=== PATIENT | female | born 1995 | race Caucasian/White ===

== ENCOUNTER 2020-08-28 21:53 | Emergency (ER) | payer OTHER ==
[2020-08-28] MEDS ORDERED: ACETAMINOPHEN 325 MG TABLET PO ONE (23:03)
--- NOTE | 2020-08-28 23:04 | ER Document Report ---
ED Medical Screen (RME) - General Chief Complaint: Chest Pain Stated Complaint: CHEST PAIN,HEADACHE,NAUSEA,DIARRHEA Time Seen by Provider: 08/28/20 22:58 Mode of Arrival: Ambulatory Information source: Patient Notes: HPI; 24-year-old female presents to the emergency room complaining of chest pain with nausea and a fever of 100.9 that started earlier today. Describes the pain as sharp and burning states it is constant. Denies any trauma or injury to her chest. Denies any recent travel. No history of PE or DVTs. No recent travel. Denies any no known COVID-19 exposure. No ill contacts. PE: Alert and oriented x3. Lungs: Scattered rhonchi no wheezes no rales. Heart: Regular rate rhythm without murmurs, rubs, gallops. I have greeted and performed a rapid initial assessment of this patient. A comprehensive ED assessment and evaluation of the patient, analysis of test results and completion of the medical decision making process will be conducted by additional ED providers. I have specifically instructed the patient or family members with the patient to immediately return to any nursing staff should anything change in the patient's condition or with their chief complaint. TRAVEL OUTSIDE OF THE [place] IN LAST 30 DAYS: No Physical Exam - Vital signs Vitals: Temp Pulse Resp BP Pulse Ox 99.3 F 90 17 137/81 H 99 08/28/20 22:12 08/28/20 22:12 08/28/20 22:12 08/28/20 22:12 08/28/20 22:12 Course - Vital Signs Vital signs: Temp Pulse Resp BP Pulse Ox 99.3 F 90 17 137/81 H 99 08/28/20 22:12 08/28/20 22:12 08/28/20 22:12 08/28/20 22:12 08/28/20 22:12
--- NOTE | 2020-08-29 00:05 | RADIOLOGY REPORT (SQ) ---
EXAM DESCRIPTION: XR CHEST 1 VIEW COMPLETED DATE/TME: 08/28/2020 23:02 CLINICAL HISTORY: 24 years, Female, chest pain COMPARISON: None. NUMBER OF VIEWS: 1 TECHNIQUE: Portable chest LIMITATIONS: None. FINDINGS: Heart size normal. Lungs clear. No pneumothorax IMPRESSION: Negative chest copyright 2011 [facility] [employer]- All Rights Reserved
[2020-08-29 01:11] LABS: ABSOLUTE BASOPHILS # (AUTO) 0.1 10^3/uL (0.0-0.2); ABSOLUTE EOSINOPHILS # (AUTO) 0.2 10^3/uL (0.0-0.6); ABSOLUTE LYMPHOCYTES (AUTO) 3.9 10^3/uL (0.5-4.7); ABSOLUTE MONOCYTES (AUTO) 0.7 10^3/uL (0.1-1.4); ABSOLUTE NEUT (AUTO) 7.4 10^3/uL (1.7-8.2); BASOPHILS % (AUTO) 0.7 % (0-2); HEMOGLOBIN 13.2 g/dL (12.0-15.5); LYMPHOCYTES % (AUTO) 31.5 % (13-45); MEAN CORPUSCULAR HGB CONC 33.8 g/dL (32.0-36.0); MEAN CORPUSCULAR VOLUME 77 fl (80-97); MONOCYTES % (AUTO) 5.5 % (3-13); PLATELET COUNT 325 10^3/uL (150-450); RED BLOOD COUNT 5.07 10^6/uL (3.72-5.28); RED CELL DISTRIBUTION WIDTH 15.4 % (11.5-14.0); SEGMENTED NEUTROPHILS % (AUTO) 60.3 % (42-78); TOTAL CELLS COUNTED % (AUTO) 100 %; WHITE BLOOD COUNT 12.4 10^3/uL (4.0-10.5)
[2020-08-29 01:31] LABS: ALBUMIN 4.4 g/dL (3.5-5.0); ALKALINE PHOSPHATASE 92 U/L (38-126); ANION GAP 8 (5-19); ASPARTATE AMINO TRANSFERASE 21 U/L (14-36); BILIRUBIN,DIRECT 0.3 mg/dL (0.0-0.4); BILIRUBIN,TOTAL 0.4 mg/dL (0.2-1.3); BLOOD UREA NITROGEN 10 mg/dL (7-20); CALCIUM 9.7 mg/dL (8.4-10.2); CARBON DIOXIDE 26 mmol/L (22-30); CHLORIDE 105 mmol/L (98-107); CREATINE KINASE 60 U/L (30-135); GLUCOSE 99 mg/dL (75-110); TOTAL PROTEIN 7.6 g/dL (6.3-8.2)
[2020-08-29 01:44] LABS: CREATINE KINASE MB < 0.22 ng/mL (<4.55); TROPONIN I < 0.012 ng/mL
[2020-08-29] MEDS ORDERED: ONDANSETRON ODT 4 MG TAB (6 TAB/ER DISP) PO PRN (03:44)
[2020-08-29] MEDS ORDERED: ONDANSETRON 4 MG TAB.RAPDIS PO ONE (03:44)
--- NOTE | 2020-08-29 03:49 | ER Document Report ---
ED General - General Chief Complaint: Chest Pain Stated Complaint: CHEST PAIN,HEADACHE,NAUSEA,DIARRHEA Time Seen by Provider: 08/28/20 22:58 Primary Care Provider: THONY PAULINO MD [HONORARY] - Follow up as needed Mode of Arrival: Ambulatory TRAVEL OUTSIDE OF THE [place] IN LAST 30 DAYS: No - HPI Context: This is a 24-year-old female presenting to the emergency department complaining of pleuritic chest pain, nausea and vomiting and fever that has been going on for about 24 hours. Patient localizes the chest pain to the left side of her chest and states that the pain is constant. Patient denies any history of congenital heart defects or any cardiac history. Patient is not a smoker and she is not on any control. Patient describes the pain as sharp and rates it as a 4 out of 5. Patient states the pain is exacerbated with a deep breath and has not found anything that alleviates her symptoms. Patient denies history of COVID infection or known contact with COVID positive persons or persons under investigation for COVID. Patient denies history of pulmonary embolism. Patient states she has had pneumonia before and her symptoms felt similar to this. Patient states at times the pain makes her feel nauseated and she in turn vomits. At other times patient states that she coughs so harshly that it leads to her vomiting. Associated symptoms: Other - See HPI Exacerbated by: Other - See HPI Relieved by: Other - See HPI Similar symptoms previously: Yes - Related Data Allergies/Adverse Reactions: aspirin Allergy (Verified 08/29/20 01:02) ketorolac [From Toradol] Allergy (Verified 08/29/20 01:02) oseltamivir [From Tamiflu] Allergy (Verified 08/29/20 01:02) tramadol Allergy (Verified 08/29/20 01:02) Past Medical History - General Information source: Patient - Social History Smoking Status: Never Smoker Frequency of alcohol use: None Drug Abuse: None Family History: Reviewed & Not Pertinent Pulmonary Medical History: Reports: Hx Pneumonia Past Surgical History: Reports: Hx Neurologic Surgery - Arnold Chiari Syndrome Review of Systems - Review of Systems Constitutional: Fever EENT: No symptoms reported Cardiovascular: Chest pain Respiratory: Cough Gastrointestinal: Nausea, Vomiting Genitourinary: No symptoms reported Female Genitourinary: No symptoms reported Musculoskeletal: No symptoms reported Skin: No symptoms reported Hematologic/Lymphatic: No symptoms reported Neurological/Psychological: No symptoms reported -: Yes All other systems reviewed and negative Physical Exam - Vital signs Vitals: Temp Pulse Resp BP Pulse Ox 99.3 F 90 17 137/81 H 99 08/28/20 22:12 08/28/20 22:12 08/28/20 22:12 08/28/20 22:12 08/28/20 22:12 - Notes Notes: CONSTITUTIONAL [Vital signs reviewed, Patient appears comfortable, Alert and oriented X 3, Normal stature.] HEAD [Atraumatic, Normocephalic.] EYES [Eyes are normal to inspection, No discharge from eyes, Extraocular muscles intact, Sclera are normal, Conjunctiva are normal.] NECK [Normal ROM, No jugular venous distention, No meningeal signs, no carotid bruit.] RESPIRATORY CHEST [Chest is nontender, Breath sounds normal, No respiratory distress.] CARDIOVASCULAR [RRR, No murmurs, Normal S1 S2, No rub, No gallop.] ABDOMEN [Abdomen is nontender, No pulsatile masses, No other masses, Bowel sounds normal, No distension, No peritoneal signs, No hernias.] BACK [There is no CVA Tenderness, There is no tenderness to palpation, Normal inspection.] UPPER EXTREMITY [Inspection normal, No cyanosis, No clubbing, No edema, 2+ radial pulses.] LOWER EXTREMITY [Inspection normal, No cyanosis, No clubbing, No edema, No calf tenderness, 2+ femoral pulses.] NEURO [No focal motor deficits, No focal sensory deficits, Speech normal.] SKIN [Skin is warm, Skin is dry, Skin is normal color.] LYMPHATIC [No adenopathy in neck.] PSYCHIATRIC [Normal affect. ] Course - Re-evaluation Re-evalutation: 08/29/20 04:58 Results of ED MSE discussed with patient. All questions were answered prior to discharge. Emergency signs and symptoms, reasons to return to the emergency department discussed with patient. - Vital Signs Vital signs: Temp Pulse Resp BP Pulse Ox 99.3 F 90 19 117/68 99 08/29/20 01:04 08/28/20 22:12 08/29/20 04:01 08/29/20 04:01 08/29/20 04:01 - Laboratory Result Diagrams: 08/29/20 01:02 08/29/20 01:02 Laboratory results interpreted by me: 08/29/20 01:02 WBC 12.4 H MCV 77 L MCH 26.0 L RDW 15.4 H - Diagnostic Test Radiology reviewed: Reports reviewed - EKG Interpretation by Me Additional EKG results interpreted by me: 08/29/20 04:58 EKG obtained on 08/28/2020 at 2202 hrs. was interpreted by this MD. Findings: Normal sinus rhythm, rate 81, normal axis, ND intervals within normal limits, P waves preceding QRS complexes, QRS complex appears narrow, QTC within normal limits, there are no obvious patterns of ST segment elevation or depression present to suggest acute myocardial ischemia or infarction. Impression: Normal sinus rhythm with nonspecific ST segments. Discharge - Discharge Clinical Impression: Pleuritic chest pain Nausea & vomiting Qualifiers: Vomiting type: unspecified Vomiting Intractability: non-intractable Qualified Code(s): R11.2 - Nausea with vomiting, unspecified Condition: Stable Disposition: HOME, SELF-CARE Instructions: Antinausea Medication ([facility]), Chest Pain of Unclear Cause ([facility]) Additional Instructions: Return to the Emergency Department without delay if any worse. HOME CARE INSTRUCTIONS & INFORMATION: Thank you for choosing us for your medical needs. We hope you're satisfied with the care you received. After you leave, you must properly care for your problem and, at the same time, observe its progress. Any condition can change. Some illnesses can change rapidly over hours or days. If your condition worsens, return to the Emergency Department or see your physician promptly. ABOUT YOUR X-RAYS AND EKG'S: If you had an EKG or X-rays taken, they have been read by the Emergency Physician. The X-rays and EKG's will also be read by a Radiologist or [facility] within 24 hours. If discrepancies are noted, you will be notified by telephone. Please be certain the ED has a correct telephone number & address where you can be reached. Also, realize that some fractures or abnormalities do not show up on initial X-rays. If your symptoms continue, see your physician. ABOUT YOUR LABORATORY TEST: If you had laboratory tests, the results have been reviewed by the Emergency Physician. Some test results (for example cultures) may not be available for several days. You will be contacted if any test result shows you need additional treatment. Please be certain the ED has a correct telephone number and address where you can be reached. ABOUT YOUR MEDICATIONS: You will receive instructions on how to take your medicine on the prescription label you receive. Additional information may be provided by the Pharmacy. If you have questions afterwards, call the ED for clarification or further instructions. Some prescribed medications may cause drowsiness. Do not perform tasks such as driving a car or operating machinery without consulting your Pharmacist. If you feel you need a refill of pain medication, your condition will need re-evaluation. Please do not call for a refill of any medication. ABOUT YOUR SIGNATURE: Signature of this document acknowledges to followin. Understanding that you received emergency treatment and that you may be released before al medical problems are known or treated. Please be certain the ED has a correct phone number & address where you can be reached. 2. Acknowledgement that you will arrange for follow-up care as recommended. 3. Authorization for the Emergency Physician to provide information to your follow-up Physician in order to maximize your care. AT ANY TIME, IF YOUR SYMPTOMS CHANGE SIGNIFICANTLY OR WORSEN OR YOU DEVELOP NEW SYMPTOMS, RETURN TO THE EMERGENCY DEPARTMENT IMMEDIATELY FOR RE-EVALUATION. OUR GOAL IS TO PROVIDE EXCELLENT MEDICAL CARE! WE HOPE THAT WE HAVE MET YOUR EXPECTATIONS DURING YOUR EMERGENCY DEPARTMENT VISIT AND THAT YOU FEEL YOU HAVE RECEIVED EXCELLENT CARE! Prescriptions: Ondansetron [Zofran Odt 4 mg Tablet] 1 tab PO Q8HP PRN #[id number] tab.rapdis PRN Reason: For Nausea/Vomiting Forms: Return to Work Referrals: THONY PAULINO MD [HONORARY] - Follow up as needed
[2020-08-29 04:06] VITALS: BP 117/68
--- NOTE | 2020-08-29 08:47 | EKG REPORT ---
SEVERITY:- BORDERLINE ECG - SINUS RHYTHM BORDERLINE T ABNORMALITIES, ANTERIOR LEADS : Confirmed by: Dariel David MD 29-Aug-2020 08:46:46
== END 2020-08-29 04:10 | disposition home or self-care (01) ==
LOC: ER 21:53
DX: R07.81 Pleurodynia (principal); R07.9 Chest pain, unspecified; R51.9 Headache, unspecified; R11.0 Nausea; R19.7 Diarrhea, unspecified; R11.2 Nausea with vomiting, unspecified; Z88.6 Allergy status to analgesic agent; Z20.828 Contact with and (suspected) exposure to other viral communicable diseases
CPT/HCPCS: 93005; 99285; 36415; 82553; 82550; 84703; 85025; 80053; 84484; 71045; 93010; S0119